=== PATIENT | female | born 1970 | race Caucasian/White ===

== ENCOUNTER → 2020-07-09 | Outpatient (CLI) | payer OTHER, SELFPAY ==
[2020-07-09 14:30] VITALS: BMI 39.4
[2020-07-17 16:38] LABS: HPV APTIMA, High Risk Negative (Negative)
== END | disposition home or self-care (01) ==
LOC: LABSPEC 16:32
PROVIDERS: Visit Provider Obstetrics & Gynecology
DX: Z12.4 Encounter for screening for malignant neoplasm of cervix (principal)
CPT/HCPCS: 87624; 88175; G0145

== ENCOUNTER → 2020-08-07 14:55 | Outpatient (CLI) | payer OTHER, SELFPAY ==
[2020-07-09 14:30] VITALS: BMI 39.4
[2020-07-26 09:13] VITALS: BMI 39.1
--- NOTE | 2020-08-07 15:02 | BI_ITS ---
MAMMOGRAPHY - BILATERAL SCREENING REASON FOR EXAM: Female, 49 years old. Routine annual screening examination. PERTINENT HISTORY: Non-contributory. TECHNIQUE: Digital bilateral breast rick (3D mammographic acquisition) in the CC and MLO projections. 2-D mediolateral oblique (MLO) and craniocaudad (CC) views of both breasts were obtained. CAD: Full Field Digital Mammography with Computer Added Detection was performed. COMPARISON: Comparison is made with prior abdomen examination dated 12/28/2012. FINDINGS: Breast Composition: The breasts are heterogeneously dense, which may obscure small masses. There are no dominant masses or suspicious calcifications. No other significant abnormalities are identified. There has been no significant change since the prior study. BI/SCREEN MAMM (CAD) W/RICK BILAT IMPRESSION: Stable bilateral screening mammogram. Yearly follow-up mammogram recommended. (A) ASSESSMENT CATEGORY: BIRADS Category 1: Negative. A letter regarding these results will be sent to the patient by the facility within 30 days. Approximately 10% of breast cancers are not detected by mammography. A normal mammogram should not delay biopsy of a clinically suspicious abnormality. [id number] Electronically Signed: Juarez Duncan, at 15:41 EST , Service support ,
== END ==
PROVIDERS: PCP Internal Medicine; Referring Provider Obstetrics & Gynecology; Visit Provider Obstetrics & Gynecology
DX: Z12.31 Encounter for screening mammogram for malignant neoplasm of breast (principal)
CPT/HCPCS: 77063; 77067

== ENCOUNTER → 2020-10-18 10:02 | Outpatient (CLI) | payer OTHER, SELFPAY ==
[2020-07-26 09:13] VITALS: BMI 39.1
[2020-10-18 12:15] LABS: Absolute Lymphocyte Count 1.86 X10^3/uL (0.83-4.51); Absolute Neutrophil Count 4.8 X10^3/uL (2.0-7.7); Basophil# 0.03 X10^3/uL; Basophil% 0.4 % (0-1); Eosinophils% 1.4 % (0-5); Hematocrit 38.2 % (37-47); Hemoglobin 12.6 g/dL (12.0-15.0); Lymphocyte # 1.86 X10^3/ul (4.0); Lymphocyte % 25.2 % (19-41); Monocyte# 0.62 X10^3/uL; Monocyte% 8.4 % (0-10); NRBC Flagged by Analyzer 0 % (0-5); Neutrophil # 4.75 X10^3/uL (2.7-7.7); Neutrophil % 64.3 % (47-70); Platelet Count 395 K/mm3 (150-450); RBC Distribution Width CV 11.9 % (11.6-14.6); RBC Distribution Width SD 38.5 fl (35.1-43.9); Red Blood Count 4.34 M/mm3 (4.2-5.4); White Blood Count 7.4 K/mm3 (4.4-11.0)
[2020-10-18 12:29] LABS: ALB/GLOB Ratio 0.8 RATIO (0.9-2.4); AST(SGOT) 21 U/L (15-37); Alanine Aminotransfer ALT/SGPT 23 U/L (13-56); Albumin, Serum 3.4 g/dL (3.2-5.0); Alkaline Phosphatase 74 U/L (45-117); Anion Gap 6 (5-15); BUN 13 mg/dL (7-18); BUN/Creat Ratio 15.9 RATIO (10-20); Calcium,Total 8.5 mg/dL (8.5-10.1); Chloride 104 mmol/L (98-107); Cholesterol 178 mg/dL (200); Creatinine, Serum 0.82 mg/dL (0.55-1.02); EST Glomerular Filtration Rate 79 mL/min (>60); Est Glom Filt Rate - Afr Amer 96 mL/min (>60); Globulin 4.1 g/dL (2.2-4.2); Glucose 84 mg/dL (74-106); High Density Lipoprotein 54 mg/dL; Potassium 3.6 mmol/L (3.5-5.1); Protein, Total 7.5 g/dL (6.4-8.2); Sodium Level 136 mmol/L (136-145); Triglycerides 123 mg/dL; Very Low Density Lipoprotein 25 mg/dL (5-40)
== END ==
PROVIDERS: PCP Internal Medicine; Referring Provider Internal Medicine; Visit Provider Internal Medicine
DX: I10 Essential (primary) hypertension (principal)
CPT/HCPCS: 36415; 80053; 80061; 85025

== ENCOUNTER → 2021-08-11 | Outpatient (CLI) | payer OTHER, SELFPAY ==
[2021-08-14 19:49] LABS: HPV APTIMA, High Risk Negative (Negative)
== END | disposition home or self-care (01) ==
LOC: LABSPEC 16:24
PROVIDERS: PCP Internal Medicine; Visit Provider Obstetrics & Gynecology
DX: Z12.4 Encounter for screening for malignant neoplasm of cervix (principal)
CPT/HCPCS: 87624; 88175; G0145

== ENCOUNTER → 2021-08-21 14:54 | Outpatient (CLI) | payer OTHER, SELFPAY ==
--- NOTE | 2021-08-21 14:56 | BI_ITS ---
MAMMOGRAPHY - BILATERAL SCREENING REASON FOR EXAM: Female, 50 years old. Routine annual screening examination. PERTINENT HISTORY: Non-contributory. TECHNIQUE: Digital bilateral breast rick (3D mammographic acquisition) in the CC and MLO projections. 2-D mediolateral oblique (MLO) and craniocaudad (CC) views of both breasts were obtained. CAD: Full Field Digital Mammography with Computer Added Detection was performed. COMPARISON: Comparison is made with prior study dated 08/07/2020. FINDINGS: Breast Composition: The breasts are heterogeneously dense, which may obscure small masses. There are no dominant masses or suspicious calcifications. No other significant abnormalities are identified. There has been no significant change since the prior study. BI/SCRN MAMM (CAD)W/RICK BILAT IMPRESSION: Stable bilateral screening mammogram. Yearly follow-up mammogram recommended. (A) ASSESSMENT CATEGORY: BIRADS Category 1: Negative. A letter regarding these results will be sent to the patient by the facility within 30 days. Approximately 10% of breast cancers are not detected by mammography. A normal mammogram should not delay biopsy of a clinically suspicious abnormality. [id number] Electronically Signed: Juarez Duncan MD at 15:30 EST , Service support ,
== END ==
PROVIDERS: PCP Internal Medicine; Referring Provider Obstetrics & Gynecology; Visit Provider Obstetrics & Gynecology
DX: Z12.31 Encounter for screening mammogram for malignant neoplasm of breast (principal)
CPT/HCPCS: 77063; 77067

== ENCOUNTER → 2022-10-01 | Outpatient (CLI) | payer OTHER, SELFPAY ==
--- NOTE | 2022-10-01 07:55 | BI_ITS ---
MAMMOGRAPHY - BILATERAL SCREENING REASON FOR EXAM: Female, 51 years old. Routine annual screening examination. PERTINENT HISTORY: Non-contributory. TECHNIQUE: Digital bilateral breast rick (3D mammographic acquisition) in the CC and MLO projections. 2-D mediolateral oblique (MLO) and craniocaudad (CC) views of both breasts were obtained. CAD: Full Field Digital Mammography with Computer Added Detection was performed. COMPARISON: Comparison is made with prior study dated 08/21/2021 and 08/07/2020. FINDINGS: Breast Composition: The breasts are heterogeneously dense, which may obscure small masses. There are no dominant masses or suspicious calcifications. Stable small benign appearing bilateral axillary lymph nodes. No other significant abnormalities are identified. There has been no significant change since the prior study. BI/SCRN MAMM (CAD)W/RICK BILAT IMPRESSION: Stable bilateral screening mammogram. Yearly follow-up mammogram recommended. (A) ASSESSMENT CATEGORY: BIRADS Category 2: Benign. A letter regarding these results will be sent to the patient by the facility within 30 days. Approximately 10% of breast cancers are not detected by mammography. A normal mammogram should not delay biopsy of a clinically suspicious abnormality. [id number] Electronically Signed: Juarez Duncan MD at 10:29 EST ,
--- NOTE | 2022-10-01 07:55 | US_ITS ---
INDICATION: HYPERTROPHY OF UTERUS EXAMINATION: Ultrasound US Pelvis Non-OB Complete TECHNIQUE: Transabdominal pelvic ultrasound was performed. Grayscale, spectral waveform, and color flow Doppler evaluation of the adnexa. COMPARISON: None. FINDINGS: UTERUS: Anteverted. The uterus measures 19.7 x 11.5 x 9.2 cm. 3 distinct hypoechoic myometrial lesions consistent with fibroids, largest in the posterior fundus measures 8.5 x 7.5 x 7.2 cm. The endometrial stripe measures 8 mm in AP diameter which is within normal limits. RIGHT OVARY: 3.6 x 3.5 x 2.3 cm. Non-enlarged, normal echogenicity. Doppler color flow demonstrated, no waveforms obtained. LEFT OVARY: 3.8 x 2.6 x 1.5 cm. Non-enlarged, normal echogenicity. Doppler color flow demonstrated, no waveforms obtained. FREE FLUID: None. US/Pelvic (Non ) IMPRESSION: Fibroid uterus. Largest fibroid measures up to 8.5 cm. Electronically Signed: Jorge L Cadet MD at 20:09 EST ,
[2022-10-01 09:25] LABS: Cholesterol 193 mg/dL (200); Glucose 93 mg/dL (74-106); High Density Lipoprotein 60 mg/dL; Thyroid Stim Hormone (TSH) 3.58 uIU/mL (0.358-3.74); Triglycerides 115 mg/dL; Very Low Density Lipoprotein 23 mg/dL (5-40)
[2022-10-01 13:17] LABS: Hemoglobin A1c 5.3 % (3.8-5.6)
== END | disposition home or self-care (01) ==
PROVIDERS: PCP Internal Medicine; Referring Provider Obstetrics & Gynecology; Visit Provider Obstetrics & Gynecology
DX: Z01.419 Encounter for gynecological examination (general) (routine) without abnormal findings (principal); Z12.31 Encounter for screening mammogram for malignant neoplasm of breast; N85.2 Hypertrophy of uterus
CPT/HCPCS: 36415; 76856; 77063; 77067; 80061; 82947; 83036; 84443

== ENCOUNTER 2022-12-01 08:06 | Inpatient (IN) | payer OTHER, SELFPAY ==
--- NOTE | 2022-11-24 13:57 | EKG12_ITS ---
Test Reason : PREOP Blood Pressure : / mmHG Vent. Rate : 086 BPM Atrial Rate : 086 BPM P-R Int : 156 ms QRS Dur : 074 ms QT Int : 360 ms P-R-T Axes : 057 028 035 degrees QTc Int : 430 ms Normal sinus rhythm Normal ECG Confirmed by KRISTEN BESS, FERMIN ([id number]), editor in chief ERWIN MENARD ([id number]) on 11/25/2022 8:14:55 AM Referred By: Larisa White Confirmed By:FERMIN PETERSON MD
[2022-11-24 15:27] LABS: Magnesium 1.9 mg/dL (1.6-2.6)
[2022-11-24 15:29] LABS: Absolute Neutrophil Count 7.9 X10^3/uL (2.0-7.7); Basophil# 0.02 X10^3/uL; Basophil% 0.2 % (0-1); Eosinophil# 0.12 X10^3/uL; Eosinophils% 1.3 % (0-5); Hematocrit 32.4 % (37-47); Lymphocyte % 7.6 % (19-41); Mean Corp Hgb Conc 30.9 g/dL (32-36); Mean Corpuscular Volume 77.9 fL (81-99); Mean Platelet Vol. 9.4 fl (6.2-12.0); Monocyte# 0.47 X10^3/uL; Monocyte% 5.1 % (0-10); NRBC Flagged by Analyzer 0 % (0-5); Neutrophil # 7.85 X10^3/uL (2.7-7.7); Neutrophil % 85.5 % (47-70); Platelet Count 446 K/mm3 (150-450); RBC Distribution Width CV 15.7 % (11.6-14.6); RBC Distribution Width SD 44.2 fl (35.1-43.9); Red Blood Count 4.16 M/mm3 (4.2-5.4); White Blood Count 9.2 K/mm3 (4.4-11.0)
[2022-11-24 15:37] LABS: ALB/GLOB Ratio 0.8 RATIO (0.9-2.4); AST(SGOT) 17 U/L (15-37); Alanine Aminotransfer ALT/SGPT 23 U/L (13-56); Albumin, Serum 3.2 g/dL (3.2-5.0); Alkaline Phosphatase 63 U/L (45-117); Anion Gap 6 (5-15); BUN 14 mg/dL (7-18); BUN/Creat Ratio 19.6 RATIO (10-20); Calcium,Total 8.7 mg/dL (8.5-10.1); Chloride 105 mmol/L (98-107); Creatinine, Serum 0.72 mg/dL (0.55-1.02); EST Glomerular Filtration Rate 92 mL/min (>60); Est Glom Filt Rate - Afr Amer 111 mL/min (>60); Glucose 91 mg/dL (74-106); Potassium 3.7 mmol/L (3.5-5.1); Protein, Total 7.2 g/dL (6.4-8.2); Sodium Level 139 mmol/L (136-145)
--- NOTE | 2022-11-30 19:44 | PCM.HP.BLA ---
History and Physical Intake Vital Signs ? 10/15/2312:29 10/15/2312:29 Height 5 ft 2 in 5 ft 2 in Weight: 203 lb ? BMI 37.1 ? BP 138/86 H ? Intake Visit Reasons:?4 WK FU, uterine fibroid Chief Complaint: 4w follow up, uterine fibroid Door To Door [employer] Generation Required: No Is patient in pain?: No Allergies latex Allergy (Mild, Verified 08/11/21 15:05) Rashpenicillin G Allergy (Mild, Verified 08/11/21 15:05) other Medications biotin 10,000 mcg capsule mcg PO 07/09/20 [History Confirmed 10/15/22] calcium citrate 250 mg calcium-vitamin D3 5 mcg (200 unit) tablet (Citracal Regular) 1 tab PO DAILY 07/09/20 [History Confirmed 10/15/22] cyanocobalamin (vitamin B-12) 1,000 mcg capsule 1,000 mcg PO DAILY 07/09/20 [History Confirmed 10/15/22] multivitamin,[id number]-[id number] (Complete Multivitamin tablet) 1 tab PO DAILY 07/09/20 [History Confirmed 10/15/22] cholecalciferol (vitamin D3) 25 mcg (1,000 unit) capsule 25 mcg PO DAILY 09/17/22 [History Confirmed 10/15/22] Is last menstrual period known: No Post menopausal: No Patient : No : No PFSH Family History? Father Lung cancer,? Onset Age: 69 ?? ? non smokerGrandmother Hypertension Cancer Social History? Smoking Status:? Never smoker alcohol intake:? current details:? social substance use type:? does not use caffeine:? Yes what type of physical activity do you participate in:? none seatbelt use:? always do you feel safe at home:? Yes additional social history:? Rainer- logistics program manager Patient works at [employer] 4 WK FU, uterine fibroid Details: WILBER VELEZ is a 51 year old who presents for follow up after pelvic ultrasound which showed 19.5 cm uterus with multiple fibroids, largest 9 cm.? she is feeling pelvic pressure and has regular menses that are crampy.? She feels some dyspareunia and pelvic pressure.? She feels bloating and an abdominal mass present.? Her uterus has had fibroids before but they have increased in size over the years. Female Reproductive History Menopausal Symptoms: No hot flashes, No night sweats, No difficulty concentrating and No change in libido History ? ? ? 3 ? Elective abortions ? Hx Para ? ? ? 3 ? Spontaneous abortions ? Hx # Term Pregnancies ? Ectopic pregnancies ? Hx # Pregnancies ? Multiple births ? # of living children ? Past Pregnancies Del. Date Name GA/Weeks Outcome Route Bth Weight Gen Labor Lgth Anesthesia Del Locatn Provider FOB Unknown 1998 Itzel ? Unknown 2001 Silvestre ? Unknown 2003 Tania ? ROS Const Constitutional: Reports as per HPI; Denies fatigue, increased appetite, poor appetite, night sweats, weight gain or weight loss ENT ENT: Reports system reviewed and no additional complaints, except as documented Cardio Card: Denies chest pain Resp Resp: Denies cough or dyspnea GI GI: Reports as per HPI; Denies abdominal pain, bloating, constipation, nausea or vomiting : Reports as per HPI and other; Denies difficulty voiding, dysuria, hematuria, hot flashes, nipple discharge, pelvic pain, prolapse symptoms, urinary frequency, urinary incontinence, urinary urgency, vaginal discharge, vaginal dryness, vaginal odor or vaginal pruritus Musc Musc: Denies arthralgias, back pain or muscle weakness Skin Skin/Breast: Denies changing lesions, breast mass, breast pain, breast skin changes or nipple discharge Neuro Neuro: Reports system reviewed and no additional complaints, except as documented Psych Psych: Denies anxiety, change in libido, depression or difficulty concentrating Endo Endo: Denies cold intolerance, excessive sweating, heat intolerance or polydipsia Ulices/Lymph Hematologic/Lymphatic: Denies easy bleeding, Denies easy bruising and Denies lymphadenopathy Exam Const General: cooperative, healthy appearing, comfortable, no acute distress, well developed and well groomed Orientation: alert [facility] Head: normal to inspection and normocephalic Ears: hearing grossly normal bilaterally and external ears normal Nose: external nose normal Face and sinus: normal facial exam Neck Neck: normal visual inspection, full ROM and no lymphadenopathy Thyroid: thyroid normal Chest Chest palpation & inspection: normal inspection of the chest Resp Effort & Inspection: normal respiratory effort Auscultation: clear to auscultation bilaterally Cardio Rate: regular rate Rhythm: regular rhythm Heart Sounds: S1 normal and S2 normal GI Inspection: normal to inspection and non-distended Palpation: soft, no hepatosplenomegaly and no guarding General: bladder normal to palpation External Female Exam: normal external appearance, normal appearance of the urethra and no lesions Urethra: normal appearance of the urethra and normal palpation Speculum Exam - Vagina: normal appearance of the vagina and normal vaginal discharge Speculum Exam - Cervix: normal appearance of the cervix, no cervical discharge, no lesions and nontender Bimanual Exam- Vagina & Uterus: bladder normal to palpation, No tender, non-tender, no cervical motion tenderness, enlarged (18 week size) and nodular (right superior fibroid present, ) Bimanual Exam- Adnexa, other: normal adnexae, no masses, normal and non-tender Pelvic Support: normal Musc Other: gross motor intact no deficits, full bilateral strength Skin General: no rashes or lesions noted Neuro General: patient alert, moves all extremities and no focal motor deficits Motor: muscle tone normal throughout Extrem General: normal to inspection and no pedal edema Psych Appearance: grossly normal Mental Status: mental status grossly normal Affect: normal affect Speech and Movement: speech and movement normal Attitude: cooperative Coding Level of Care Code Off vis,est,level 5 Diagnoses Fibroid? D21.9 Assessment and Plan Assessment and Plan (1) Fibroid: ?Status:?Acute ?Comment: 18 week size, largest fibroid 9 cm.? plan TAHBS. Plan After discussing the patient's diagnosis and treatment plan options, patient wishes to proceed with surgical management.? I have discussed with the patient the risks, benefits, and alternatives of the procedure which include but are not limited to risks of anesthesia, bleeding, infection, possible damage to bowel, bladder, or surrounding vasculature which could lead to additional surgery to evaluate any complications.? Patient agrees to procedure and wishes to proceed.? ACOG/uptodate references given for additional information regarding procedure.?
[2022-12-01] VITALS (18 sets, daily range): BP systolic 99–124; BP diastolic 45–77; PULSE 71–91; RESP 14–19; TEMP 36.4–37.2; O2SAT 94–100; BMI 37.2
[2022-12-01] MEDS: Magnesium 2 GM for ERAS IV (06:11)
[2022-12-01] MEDS: Lactated Ringers 1,000 ML 40 ML IV (06:11)
[2022-12-01] MEDS: Celecoxib 200 MG Capsule 400 MG PO (06:30)
[2022-12-01] MEDS: Enoxaparin 40 MG/0.4 ML Syringe SC (06:30)
[2022-12-01] MEDS: Clindamycin 900 MG/50 ML BAG 75 MG IV (06:30)
[2022-12-01] MEDS: Acetaminophen 500 MG Tablet 1000 MG PO ×4 (06:31→23:36)
[2022-12-01] MEDS: Scopolamine 1mg/72hr Patch 1 PATCH TD (06:31)
[2022-12-01] MEDS: Gabapentin 600 MG Tablet PO (06:31)
[2022-12-01] MEDS: Phenazopyridine 95 MG Tablet 190 MG PO (06:31)
[2022-12-01] MEDS: dexAMETHasone 10 MG/ML Vial 8 MG IV (06:32)
[2022-12-01 07:11] LABS: Bedside Glucose 115 mg/dL (74-106)
--- NOTE | 2022-12-01 07:30 | HYST_PTH ---
PATIENT: WILBER VELEZ LOC: MS3 U#:[id number] AGE/SX: 52/F ROOM: [facility] [place] RE12/01/[address]: Dr. Larisa White MD : 1970 BED: 1 DIS: 12/02/2022 SPEC #: [id number] RECD: 12/01/22 11:32 STATUS: SHAZIA ROSALES #: [id number] RON: 12/01/22 07:[address]: Larisa White DEPT: SURGICAL PATHOLOGY RECD BY: Mariel Pinto ENTERED: 12/01/22 12:20 SP TYPE: HYSTERECT OTHR DR: Dr. Moo Somers MD Tissues: Uterus, NOS Procedures: Surgery Specimen Level V HEADER OPERATION: ERAS, abdominal supracervical hysterectomy, salpingectomy PRE-OP DIAGNOSIS: Fibroid TISSUE SUBMITTED: Uterus, cervix, bilateral fallopian tubes MICROSCOPIC DIAGNOSIS Uterus, hysterectomy: Cervix ? nabothian cysts. Endometrium ? proliferative endometrium. Myometrium ? leiomyomas and focal superficial adenomyosis. Right and left fallopian tubes ? complete cross-sections of fallopian tubes. One fallopian tube with benign paratubal cysts. AM:estela 12/02/2022 MICROSCOPIC DESCRIPTION Slides are reviewed. GROSS DESCRIPTION Received in fixative is one container labeled with the patient's name and designated uterus, cervix, bilateral fallopian tubes. The specimen consists of a supracervical hysterectomy specimen consisting of uterus with proximal portion of cervix and detached bilateral fallopian tubes. The uterus with proximal portion of cervix weighs 604 gm and measures 15.0 x 11.0 x 9.0 cm. Proximal portion of cervix measures 1.2 cm in length. The endocervical canal measures 2.0 cm in length. The endocervical mucosa is leos, glistening and unremarkable. The endometrial cavity is compressed to one side and measures 7.0 cm in length and 5.0 cm in width. The endometrium is leos, glistening without any mass lesion and measures 2.0 cm in thickness. The uterine wall reveals multiple intramural nodular masses. The largest mass measures 8.0 cm in greatest dimension. Sections of these masses reveal leos whorled cut surfaces without areas of hemorrhage, necrosis or cystic degeneration. The uninvolved uterine wall measures up to 3.0 cm in thickness. The fallopian tubes are not identified as right or left, and measures 4.5 cm in length and 0.6 cm in diameter and 5.5 cm in length and 0.6 cm in diameter. The fimbrial end is identified. Sections reveal unremarkable cut surfaces. Director Of Business Continuity sections are submitted in 12 cassettes as follows: 1 - anterior cervix, 2 - posterior cervix, 3 & 4 - anterior uterine wall, 5 & 6 - posterior uterine wall, 7 & 8 - largest nodular mass, 9 - second largest nodular mass, 10 - smaller nodular masses, 11 - one fallopian tube, 12 - second fallopian tube. / SJ:estela 12/01/2022 TC:1 CPT: 75299
[2022-12-01 07:50] LABS: Internal QC Validated? YES +Cl - CLEAR BKGD; Pregnancy, Serum, hCG Quali. NEGATIVE Negative
--- NOTE | 2022-12-01 08:03 | PCM.OPRPT ---
Problems Associated Problem List Diagnoses (1) ASCUS with positive high risk HPV: (2) Fibroid: Report of Operation Date of Procedure: 12/01/22 Pre-Operative Diagnosis: see problem list Post-Operative Diagnosis: same Surgery/Procedure Performed:: supracervical abdominal hysterectomy bilateral salpingectomy Description of Surgical Findings:: enlarged 18 week size uterus with fibroid and dense posterior uterine wall to sigmoid colon and ovarian cul de sac and fossa adhesions Surgeon: Larisa White personnel and payroll technician: Shira Cornell Special Medications: floseal Specimen's removed: uterus tubes Fluids Replaced: crystalloid Description of Procedure: The patient was taken to the operating room and placed under general anesthesia in the dorsal supine position. She was prepped and draped in the normal sterile fashion. Calles catheter was placed in the bladder SCDs were on and preoperative antibiotics were given. A Pfannenstiel skin incision was made with the scalpel and carried through the underlying layer of the fascia with the scalpel, fascia was nicked in the midline, incision extended laterally. Rectus bellies were dissected off superiorly and inferiorly sharply and bluntly and peritoneum entered digitally, incision stretched laterally and the retractor was placed after the bowel was packed away. The uterus was identified and noted to be significantly enlarged approximately 18 cm. The ovaries were noted to be within normal limits. The fallopian tubes were elevated bilaterally and the mesosalpinx transected with the ligasure device. The round ligaments were transected bilaterally with the ligasure device and the broad ligament was opened up and then the utero-ovarian ligament vessels were transected with the ligasure. The bladder flap was created by taking down the vesicouterine peritoneum and the uterine vessels were skeletonized and burned and ligated with the ligasure device. significant scar tissue was encountered posteriorly on the uterus between the sigmoid colod and the left ovary and ovarian fossa, and the posterior uterine corpus. this was dissected bluntly and sharply, and taken down carefully sequentially and noted to maintain good integrity of the bowel wall and surrounding tissue. The cardinal ligaments were then clamped cut and suture ligated bilaterally with 0 Monocryl followed by progressive bites of the parametrium down to the level of the cervix with the ligasure. Good attention was paid to keep the bladder inferior to the clamps which was dissected off of the cervix and lower uterine corpus. The clamps were then placed underneath the cervix bilaterally the uterus amputated off the stump and the cuff was suture ligated with 0 vicryl [id number] sutures. after amputating, part of the cervix was noted to still be present. therefore the procedure was noted to be a supracervical hysterectomy and it was debated to either attempt further removal however there was increased risk of injury to the surrounding bowel that adheioslysis had been performed to be able to go down as far as was down to be able to resect as much tissue that was done. therefore after discussing with my fellow surgeon it was felt that the risk of bowel injury outweighed the risk of leaving the small amount of remaining cervix and therfore the procedure was completed. There was some raw appearance which was treated with floseal, applied pressure, and then the area was observed for bleeding. Hemostasis was noted and the peritoneum was closed with 3-0 Monocryl fascia closed with 0 PDS subcutaneous tissue reapproximated with 3-0 Monocryl and the skin closed with 4-0 Monocryl. Patient was awoken and taken recovery in stable condition. Multi Select Codes Urinary/Genital Urinary/Genital CPT Codes: Other Procedure See Report ([id number] supracervical abdominal hysterectomy)
[2022-12-01] MEDS: Ondansetron 4 MG/2 ML Vial IV (09:23)
[2022-12-01] MEDS: Sugammadex Sodium 200 MG/2 ML VIAL IV (10:15)
[2022-12-01 11:16] LABS: Bedside Glucose 152 mg/dL (74-106)
--- NOTE | 2022-12-01 11:31 | DCINST_ITS ---
Discharge Instructions Procedure Hysterectomy, Abd Diet Discharge Diet: No restrictions Activity Discharge Activity: Return to Normal Activity, May Not Drive (while taking narcotic pain medications.) and May Shower May resume sexual activity in: 6-8 weeks Weight Bearing Status: Weight bearing as tolerated Dressing / Incision Call your doctor if your incision/area has: Continuous Slow Oozing, Sudden Increased Bleeding, Increased Pain/ Swelling, Increased Redness and Foul Smelling Discharge Call your doctor if you observe: Fever of 101 or Higher, Inability to urinate, Inability to have a bowel movement and Using more than 1 pad per hour Follow Up Care Please Follow Up With: Larisa White MD Test Results: Test results from this visit will be discussed in further detail at your follow- up appointment, if applicable. Discharge Plan Admission Admit Date/Time: 12/01/22 08:06 Attending Provider: Larisa White Primary Care Provider: Moo Somers Discharge Orders/Prescriptions Prescriptions: New oxycodone-acetaminophen [Percocet] 5-325 mg tablet 1 tab PO Q6H PRN (Reason: pain) 7 Days Qty: 20 0RF naproxen [naproxen] 500 mg tablet 500 mg PO BID PRN PRN (Reason: Pain) Qty: 30 1RF No Action multivitamin,pn-helw-biuaipqq tablet 1 tab PO DAILY biotin 10,000 mcg capsule 10,000 mcg PO DAILY calcium citrate 250 mg calcium-vitamin D3 5 mcg (200 unit) tablet 250 mg-5 mcg (200 unit) tablet 1 tab PO DAILY cyanocobalamin (vitamin B-12) 1,000 mcg capsule 1,000 mcg PO DAILY cholecalciferol (vitamin D3) 25 mcg (1,000 unit) capsule 25 mcg PO DAILY Other Ambulatory Orders: ,Urine (Routine) Timeframe: 20221201 Facility: [facility] - Location: Laboratory Ordered By: Dr. Feliberto Gauthier Referrals / Follow Up: Moo Somers MD [Primary Care Provider] -
[2022-12-01] MEDS: Lactated Ringers 1,000 ML 15 ML IV (14:11)
[2022-12-01] MEDS: oxyCODONE 5 MG Tablet PO (14:12)
[2022-12-01] MEDS: Ketorolac 30 MG/ML Syringe IV ×2 (17:32→23:36)
[2022-12-01] MEDS: Docusate Sodium 100 MG Capsule PO (20:47)
[2022-12-01] MEDS: 0.9% Saline Lock 10 ML Syringe IV (23:37)
[2022-12-02 01:55] VITALS: BP 114/58; PULSE 77; RESP 17; TEMP 37.3; O2SAT 94
[2022-12-02] MEDS: Acetaminophen 500 MG Tablet 1000 MG PO (05:34)
[2022-12-02] MEDS: Ketorolac 30 MG/ML Syringe IV (05:35)
[2022-12-02] MEDS: 0.9% Saline Lock 10 ML Syringe IV (05:35)
[2022-12-02 06:00] VITALS: BP 100/55; PULSE 87; RESP 14; TEMP 37.1; O2SAT 94
[2022-12-02 06:42] LABS: Hematocrit 27.5 % (37-47); Hemoglobin 8.4 g/dL (12.0-15.0); Mean Corp Hgb Conc 30.5 g/dL (32-36); Mean Corpuscular Hgb 23.8 pg (27.0-32.0); Mean Corpuscular Volume 77.9 fL (81-99); Mean Platelet Vol. 9.1 fl (6.2-12.0); Platelet Count 418 K/mm3 (150-450); RBC Distribution Width CV 15.8 % (11.6-14.6); RBC Distribution Width SD 44.9 fl (35.1-43.9); Red Blood Count 3.53 M/mm3 (4.2-5.4); White Blood Count 13.1 K/mm3 (4.4-11.0)
--- NOTE | 2022-12-02 07:50 | PCM.PN.OB ---
Subjective Subjective patient recovering well, denies CP, SOB, N, or V. patient is ambulating, voiding ,tolerating adequate po, and pain is controlled with oral medications. Objective Data Objective Data Vital Signs: Vital Signs Temp Pulse Resp BP Pulse Ox O2 Del Method O2 Flow Rate 98.8 F 87 14 100/55 L 94 Room Air 4 12/02/22 06:00 12/02/22 06:00 12/02/22 06:00 12/02/22 06:00 12/02/22 06:00 12/02/22 06:00 12/01/22 12:40 Oxygen Flow Rate (L/min) 4 Oxygen Delivery Method Room Air Weight: 203 lb 11.314 oz Body Mass Index (BMI) 37.2 Intake & Output: Intake and Output for Last 24 Hours 11/30/22 12/01/22 12/02/22 23:59 23:59 23:59 Intake Total 3415.5 / 3415.5 200 / 200 Output Total 2600 / 2600 700 / 700 Balance 815.5 / 815.5 -500 / -500 Lab / Micro Data Result Diagrams: 12/02/22 06:28 11/24/22 14:19 Labs: Laboratory Results - last 24 hr 12/01/22 07:20: Serum , Qual NEGATIVE 12/01/22 10:56: POC Glucose 152 H 12/02/22 06:28: WBC 13.1 H, RBC 3.53 L, Hgb 8.4 L, Hct 27.5 L, MCV 77.9 L, MCH 23.8 L, MCHC 30.5 L, RDW Std Deviation 44.9 H, RDW Coeff of Mary 15.8 H, Plt Count 418, MPV 9.1 Physical Exam Const alert, oriented x3 and no apparent distress Resp normal respiratory effort GI soft to palpation and non-distended Inspection: incision other (dressing dry and intact) Narrative: Minimal drainage on peripad Bladder / Kidney Exam: catheter in place Assessment & Plan (1) History of hysterectomy, supracervical: COMMENT: 18 cm uterus fibroids severe posterior uterine bowel adhesions PLAN: Plan patient is s/p JORDANA, BS POD 1 1. routine ERAS protocol postop care- increase ambulation, encourage oral intake and oral control of pain. lovenox and scds for dvt prophylaxis, patient stable for discharge to home.
[2022-12-02 09:09] VITALS: BP 113/60; PULSE 80; RESP 16; TEMP 37.1; O2SAT 96
--- NOTE | 2022-12-02 09:40 | CASEMGMT ---
CORIN NAM Assessment: Face to Face with pt for initial transition planning/care coordination assessment. RN CYRIL introduced self and role at [facility], pt voices understanding and consents to assessment. Pt is A/O x4 and answers all questions appropriately at this time. Pt lying in bed in no distress with at bedside. Care providers, pharmacy, and demographics verified/updated. Admitting Dx: JORDANA, bilateral salpin PCP:Lizbet Specialists:Cindy Eduardo Pharmacy: [facility] Retail Insurance: [employer] Prescription Benefit: yes LNOK: Rainer Weldon, Living Arrangements: Pt lives with in a two story home with 1 step to enter. Pt reports she is I in ADL's and denies concerns at home. Transportation: Pt drives self and denies concerns with transportation. DME/HHC/SNF: Pt denies having any DME in the home, previous HHC or SNF stays. Pt states no concerns with going home at time of dc. Pt states no further concerns/needs. CM to follow. Advised pt to ask CM if any further question/concerns/needs arise, voices understanding. Pt Goal: Home Plan: Home
== END 2022-12-02 10:19 | disposition home or self-care (01) | DRG 743 ==
LOC: SDC 11:58 → MS3 11:58
PROVIDERS: Anesthesiology; Admitting Provider Obstetrics & Gynecology; PCP Internal Medicine; Referring Provider Obstetrics & Gynecology; Visit Provider Obstetrics & Gynecology
PROC: 0UT90ZZ Resection of Uterus, Open Approach (ICD-10-PCS; CPT 58150; principal; 2022-12-01 07:10)
DX: D25.9 Leiomyoma of uterus, unspecified (principal); N73.6 Female pelvic peritoneal adhesions (postinfective); N85.2 Hypertrophy of uterus; R87.610 Atypical squamous cells of undetermined significance on cytologic smear of cervix (ASC-US)
CPT/HCPCS: 36415; 80053; 82962; 83735; 84703; 85025; 85027; 86850; 86900; 86901; 88307; 93005; 94668; 94762; J7120; A4216; J2405

== ENCOUNTER → 2022-12-14 | Outpatient (CLI) | payer OTHER, SELFPAY | END | disposition home or self-care (01) | LOC: LABSPEC 11:50 | PROVIDERS: PCP Internal Medicine; Referring Provider Obstetrics & Gynecology; Visit Provider Obstetrics & Gynecology | DX: R30.0 Dysuria (principal) | CPT/HCPCS: 87086 ==

== ENCOUNTER → 2022-12-30 | Outpatient (CLI) | payer OTHER, SELFPAY ==
[2022-12-30 14:23] LABS: Absolute Lymphocyte Count 2.28 X10^3/uL (0.83-4.51); Absolute Neutrophil Count 6.3 X10^3/uL (2.0-7.7); Basophil# 0.05 X10^3/uL; Basophil% 0.5 % (0-1); Eosinophil# 0.41 X10^3/uL; Eosinophils% 4.2 % (0-5); Hematocrit 35.2 % (37-47); Lymphocyte # 2.28 X10^3/ul (0.83-4.51); Lymphocyte % 23.1 % (19-41); Mean Corp Hgb Conc 31.3 g/dL (32-36); Mean Corpuscular Hgb 25.4 pg (27.0-32.0); Mean Corpuscular Volume 81.3 fL (81-99); Mean Platelet Vol. 8.8 fl (6.2-12.0); Monocyte# 0.76 X10^3/uL; Monocyte% 7.7 % (0-10); NRBC Flagged by Analyzer 0 % (0-5); Neutrophil # 6.33 X10^3/uL (2.7-7.7); Neutrophil % 64.1 % (47-70); Platelet Count 376 K/mm3 (150-450); RBC Distribution Width CV 19.2 % (11.6-14.6); RBC Distribution Width SD 56.2 fl (35.1-43.9); Red Blood Count 4.33 M/mm3 (4.2-5.4); White Blood Count 9.9 K/mm3 (4.4-11.0)
== END | disposition home or self-care (01) ==
LOC: PAVLAB 14:06
PROVIDERS: PCP Internal Medicine; Referring Provider Obstetrics & Gynecology; Visit Provider Obstetrics & Gynecology
DX: D64.9 Anemia, unspecified (principal)
CPT/HCPCS: 36415; 85025

== ENCOUNTER → 2024-01-13 | Outpatient (CLI) | payer OTHER, SELFPAY ==
[2024-01-19 12:10] LABS: HPV APTIMA, High Risk Negative (Negative)
== END | disposition home or self-care (01) ==
PROVIDERS: PCP Internal Medicine; Referring Provider Obstetrics & Gynecology; Visit Provider Obstetrics & Gynecology
DX: Z12.4 Encounter for screening for malignant neoplasm of cervix (principal)
CPT/HCPCS: 87624; 88175; G0145

== ENCOUNTER → 2024-01-20 | Outpatient (CLI) | payer OTHER, SELFPAY ==
--- NOTE | 2024-01-20 09:51 | BI_ITS ---
MAMMOGRAPHY - BILATERAL SCREENING REASON FOR EXAM: Female, 53 years old. Routine annual screening examination. PERTINENT HISTORY: Non-contributory. TECHNIQUE: Digital bilateral breast rick (3D mammographic acquisition) in the CC and MLO projections. 2-D mediolateral oblique (MLO) and craniocaudad (CC) views of both breasts were obtained. CAD: Full Field Digital Mammography with Computer Added Detection was performed. COMPARISON: Comparison is made with prior study dated March 31, 2023 and August 21, 2021. FINDINGS: Breast Composition: The breasts are heterogeneously dense, which may obscure small masses. There are no dominant masses or suspicious calcifications. No other significant abnormalities are identified. There has been no significant change since the prior study. BI/SCRN MAMM (CAD)W/RICK BILAT IMPRESSION: Stable bilateral screening mammogram. Yearly follow-up mammogram recommended. (A) ASSESSMENT CATEGORY: BIRADS Category 1: Negative. A letter regarding these results will be sent to the patient by the facility within 30 days. Approximately 10% of breast cancers are not detected by mammography. A normal mammogram should not delay biopsy of a clinically suspicious abnormality. [id number] Electronically Signed: Juarez Duncan MD at 12:17 EDT ,
[2024-01-20 10:29] LABS: Absolute Lymphocyte Count 1.83 X10^3/uL (0.83-4.51); Absolute Neutrophil Count 4.1 X10^3/uL (2.0-7.7); Basophil# 0.04 X10^3/uL; Basophil% 0.6 % (0-1); Eosinophil# 0.16 X10^3/uL; Eosinophils% 2.4 % (0-5); Hematocrit 41.3 % (37-47); Hemoglobin 14.1 g/dL (12.0-15.0); Lymphocyte # 1.83 X10^3/ul (0.83-4.51); Lymphocyte % 27.6 % (19-41); Mean Corp Hgb Conc 34.1 g/dL (32-36); Mean Corpuscular Hgb 29.7 pg (27.0-32.0); Mean Corpuscular Volume 87.1 fL (81-99); Mean Platelet Vol. 8.9 fl (6.2-12.0); Monocyte# 0.51 X10^3/uL; Monocyte% 7.7 % (0-10); NRBC Flagged by Analyzer 0 % (0-5); Neutrophil # 4.06 X10^3/uL (2.7-7.7); Neutrophil % 61.4 % (47-70); Platelet Count 349 K/mm3 (150-450); RBC Distribution Width CV 12.3 % (11.6-14.6); RBC Distribution Width SD 39.3 fl (35.1-43.9); Red Blood Count 4.74 M/mm3 (4.2-5.4); White Blood Count 6.6 K/mm3 (4.4-11.0)
[2024-01-20 10:55] LABS: Anion Gap 3 (5-15); BUN 16 mg/dL (7-18); BUN/Creat Ratio 17.8 RATIO (10-20); Calcium,Total 8.8 mg/dL (8.5-10.1); Chloride 105 mmol/L (98-107); Cholesterol 201 mg/dL (200); EST Glomerular Filtration Rate 70 mL/min (>60); Est Glom Filt Rate - Afr Amer 85 mL/min (>60); Glucose 95 mg/dL (74-106); High Density Lipoprotein 50 mg/dL; Potassium 3.5 mmol/L (3.5-5.1); Sodium Level 137 mmol/L (136-145); Thyroid Stim Hormone (TSH) 3.08 uIU/mL (0.358-3.74); Triglycerides 142 mg/dL; Very Low Density Lipoprotein 28 mg/dL (5-40)
[2024-01-20 11:11] LABS: Hemoglobin A1c 5.2 % (3.8-5.6)
[2024-01-20 18:20] LABS: Vitamin D,25 Hydroxy 42.1 ng/mL
== END | disposition home or self-care (01) ==
PROVIDERS: PCP Internal Medicine; Referring Provider Obstetrics & Gynecology; Visit Provider Obstetrics & Gynecology
DX: Z12.31 Encounter for screening mammogram for malignant neoplasm of breast (principal); Z13.29 Encounter for screening for other suspected endocrine disorder; Z13.1 Encounter for screening for diabetes mellitus; Z13.21 Encounter for screening for nutritional disorder; Z13.220 Encounter for screening for lipoid disorders; Z13.0 Encounter for screening for diseases of the blood and blood-forming organs and certain disorders involving the immune mechanism
CPT/HCPCS: 36415; 77063; 77067; 80048; 80061; 82306; 83036; 84443; 85025

== ENCOUNTER → 2024-10-26 | Outpatient (CLI) | payer OTHER, SELFPAY ==
[2024-10-26 12:49] LABS: Absolute Lymphocyte Count 1.51 X10^3/uL (0.83-4.51); Absolute Neutrophil Count 5.2 X10^3/uL (2.0-7.7); Basophil# 0.02 X10^3/uL; Basophil% 0.3 % (0-1); Eosinophil# 0.08 X10^3/uL; Eosinophils% 1.1 % (0-5); Hematocrit 40.5 % (37-47); Hemoglobin 13.7 g/dL (12.0-15.0); Lymphocyte # 1.51 X10^3/ul (0.83-4.51); Lymphocyte % 20.5 % (19-41); Mean Corp Hgb Conc 33.8 g/dL (32-36); Mean Corpuscular Volume 88.6 fL (81-99); Mean Platelet Vol. 9.4 fl (6.2-12.0); Monocyte# 0.54 X10^3/uL; Monocyte% 7.3 % (0-10); NRBC Flagged by Analyzer 0 % (0-5); Neutrophil # 5.21 X10^3/uL (2.7-7.7); Neutrophil % 70.5 % (47-70); Platelet Count 363 K/mm3 (150-450); RBC Distribution Width CV 12.2 % (11.6-14.6); RBC Distribution Width SD 39.5 fl (35.1-43.9); Red Blood Count 4.57 M/mm3 (4.2-5.4); White Blood Count 7.4 K/mm3 (4.4-11.0)
[2024-10-26 13:41] LABS: Cholesterol 193 mg/dL (200); Ferritin 55 ng/mL (8-252); Follicle Stimulating Hormone 9.2 mIU/mL; High Density Lipoprotein 57 mg/dL; T4 Free Direct 0.94 ng/dL (0.76-1.46); Triglycerides 162 mg/dL; Very Low Density Lipoprotein 32 mg/dL (5-40)
[2024-10-26 13:59] LABS: Hemoglobin A1c 5.5 % (3.8-5.6)
[2024-10-26 14:34] LABS: Vitamin B12 777 pg/mL (211-911); Vitamin D,25 Hydroxy 38.4 ng/mL
[2024-10-27 16:09] LABS: Deamidated Gliadin IgA 6 units (0-19); Deamidated Gliadin IgG 3 units (0-19); Endomysial Antibody IgA Negative (Negative); Immunoglobulin A 274 mg/dL (87-352); t-Transglutaminase IgA <2 U/mL (0-3)
== END | disposition home or self-care (01) ==
LOC: VSLAB 11:04
PROVIDERS: PCP Family Medicine; Visit Provider Family Medicine
DX: R53.83 Other fatigue (principal); R14.0 Abdominal distension (gaseous); Z13.6 Encounter for screening for cardiovascular disorders; Z13.228 Encounter for screening for other metabolic disorders
CPT/HCPCS: 36415; 80061; 82306; 82533; 82607; 82728; 82784; 83001; 83036; 83516; 83735; 84439; 84443; 85025; 86255

== ENCOUNTER → 2025-07-30 | Outpatient (CLI) | payer OTHER, SELFPAY ==
--- NOTE | 2025-07-30 15:00 | VUL_PTH ---
PATIENT: WILBER VELEZ LOC: [facility] U#:[id number] AGE/SX: 54/F ROOM: RE07/30/[address]: Dr. Larisa White MD : 1970 BED: DIS: 07/30/2025 SPEC #: [id number] RECD: 07/30/25 16:40 STATUS: SHAZIA REQ #: [id number] RON: 07/30/25 15:[address]: Larisa White DEPT: SURGICAL PATHOLOGY RECD BY: Jani Wray ENTERED: 07/31/25 08:54 SP TYPE: VULVA BX OTHR DR: Etelvina Bynum, [facility], DO Tissues: A - Vulva, NOS Procedures: Surgery Specimen Level IV HEADER OPERATION: Vulvar biopsy PRE-OP DIAGNOSIS: Vulvar lesion TISSUE SUBMITTED: A- Vulvar tissue MICROSCOPIC DIAGNOSIS A. Skin, vulva, biopsy: * Fibroepithelial polyp MICROSCOPIC DESCRIPTION Slides are reviewed. GROSS DESCRIPTION A. Received in formalin labeled with the patient's name and date of . Designated as " vulvar BX" is a 0.6 x 0.3 x 0.2 cm leos-white, slightly wrinkled irregular and polypoid portion of skin. A definitive resection margin is difficult to determine grossly. Entirely submitted in 1 cassette. [place] 07/31/[id number]
== END | disposition home or self-care (01) ==
LOC: LABSPEC 16:03
PROVIDERS: PCP Family Medicine; Visit Provider Obstetrics & Gynecology
DX: N84.3 Polyp of vulva (principal)
CPT/HCPCS: 88305